=== PATIENT | female | born 1965 | race Native Hawaiian/Other Pacific Islander ===

== ENCOUNTER 2018-12-24 10:39 | Day surgery (SDC) | payer OTHER ==
[~2018-12-24] VITALS: Ht 162.6 cm; Wt 58.5 kg
== END 2018-12-24 12:30 | disposition home or self-care (01) ==
LOC: OR 10:39
PROC: 3E0U33Z Introduction of Anti-inflammatory into Joints, Percutaneous Approach (ICD-10-PCS; principal; 2018-12-24)
PROC: 3E0U3BZ Introduction of Anesthetic Agent into Joints, Percutaneous Approach (ICD-10-PCS; 2018-12-24)
DX: M46.1 Sacroiliitis, not elsewhere classified (principal); M53.3 Sacrococcygeal disorders, not elsewhere classified
CPT/HCPCS: J1020; J3490

== ENCOUNTER 2019-01-27 08:57 | Day surgery (SDC) | payer OTHER ==
[~2019-01-27] VITALS: Ht 162.6 cm; Wt 55.8 kg
== END 2019-01-27 11:30 | disposition home or self-care (01) ==
LOC: OR 08:57
PROC: 3E0R33Z Introduction of Anti-inflammatory into Spinal Canal, Percutaneous Approach (ICD-10-PCS; principal; 2019-01-27)
PROC: 3E0R3BZ Introduction of Anesthetic Agent into Spinal Canal, Percutaneous Approach (ICD-10-PCS; 2019-01-27)
DX: M53.3 Sacrococcygeal disorders, not elsewhere classified (principal); M46.1 Sacroiliitis, not elsewhere classified
CPT/HCPCS: J1020; J3490

== ENCOUNTER 2019-07-21 07:59 | Day surgery (SDC) | payer OTHER | END 2019-07-21 09:19 | disposition home or self-care (01) | LOC: OR 07:59 | PROC: 3E0R3BZ Introduction of Anesthetic Agent into Spinal Canal, Percutaneous Approach (ICD-10-PCS; principal; 2019-07-21) | PROC: 3E0R33Z Introduction of Anti-inflammatory into Spinal Canal, Percutaneous Approach (ICD-10-PCS; 2019-07-21) | DX: M53.3 Sacrococcygeal disorders, not elsewhere classified (principal); M46.1 Sacroiliitis, not elsewhere classified | CPT/HCPCS: J1020; J3490 ==